=== PATIENT | male | born 1945 | race Caucasian/White ===

== ENCOUNTER 2018-01-07 13:05 | Emergency (ER) | payer MEDICARE, OTHER ==
[~2018-01-07] VITALS: Ht 182.9 cm; Wt 105.2 kg
[2018-01-07] MEDS ORDERED: CEFDINIR300 MG PO (13:36)
[2018-01-07] MEDS ORDERED: CLEOCIN HCL300 MG PO (16:21)
== END 2018-01-07 16:41 | disposition home or self-care (01) ==
LOC: ED 13:05
DX: L03.115 Cellulitis of right lower limb (principal); I10 Essential (primary) hypertension; Z87.891 Personal history of nicotine dependence
CPT/HCPCS: 80053; 85025; 93971; 96365; 99284